=== PATIENT | male | born 1960 | race Caucasian/White ===

== ENCOUNTER 2017-11-17 08:32 | Day surgery (SDC) | payer BC ==
[2017-11-04 08:40] VITALS: BP 161/93
[~2017-11-17] VITALS: Ht 180.3 cm; Wt 100.0 kg
[~2017-11-17 08:32] MED LIST: ACETAMINOPHEN PO; BUPIVACAINE/PF 0.5% ONE; CALCIUM + D PO; EPINEPHRINE 1 MG/ML, 1ML ONE; LIDOCAINE GEL 2%, 5ML ONE; LIDOCAINE/PF 0.5% ,50ML ONE; MULT-124 PO; VITAMIN B12 PO
[2017-11-17] MEDS ORDERED: LACTATED RINGERS 1,000 ML IV SCH (09:02)
[2017-11-17] MEDS ORDERED: MIDAZOLAM 1 MG/ML, 2ML ONE (09:06)
[2017-11-17] MEDS ORDERED: FENTANYL PF 100 MCG/2ML ONE ×2 (09:06→11:00)
[2017-11-17] MEDS ORDERED: ACETAMINOPHEN 500 MG TABLET ONE (09:07)
[2017-11-17] MEDS ORDERED: GABAPENTIN 300 MG CAPSULE ONE (09:07)
[2017-11-17] MEDS ORDERED: ONDANSETRON ODT 8 MG ONE (09:07)
[2017-11-17] MEDS ORDERED: GLYCOPYRROLATE 0.2MG/1ML, 5ML ONE (09:08)
[2017-11-17] MEDS ORDERED: SUCCINYLCHOLINE 20 MG/ML, 10ML ONE (09:08)
[2017-11-17] MEDS ORDERED: NEOSTIGMINE 1 MG/ML, 10ML ONE (09:08)
[2017-11-17] MEDS ORDERED: PROPOFOL 10 MG/ML, 20ML ONE (09:08)
[2017-11-17] MEDS ORDERED: CEFAZOLIN 1,000 MG ONE (09:08)
[2017-11-17] MEDS ORDERED: DEXAMETHASONE 4 MG/ML, 1ML ONE (09:08)
[2017-11-17] MEDS ORDERED: ONDANSETRON 2MG/ML, 2ML ONE (09:08)
[2017-11-17] MEDS ORDERED: BUPIVACAINE/PF 0.5% ONE (09:08)
[2017-11-17] MEDS ORDERED: ACETAMINOPHEN 500 MG TABLET PO ONE (09:30)
[2017-11-17] MEDS ORDERED: GABAPENTIN 300 MG CAPSULE PO ONE (09:30)
[2017-11-17] MEDS ORDERED: ONDANSETRON ODT 8 MG PO ONE (09:30)
[2017-11-17] MEDS ORDERED: ROCURONIUM 10 MG/ML,10ML ONE (09:32)
[2017-11-17] MEDS ORDERED: KETOROLAC 30 MG/1 ML ONE (09:59)
[2017-11-17] MEDS ORDERED: PROMETHAZINE 12.5 MG SUPP PR PRN (10:00)
[2017-11-17] MEDS ORDERED: ALBUTEROL/IPRATROPIUM 2.5MG/0.5MG, 3 ML NPPB PRN (10:00)
[2017-11-17] MEDS ORDERED: MEPERIDINE/PF 25MG/0.5ML IVPush PRN (10:00)
[2017-11-17] MEDS ORDERED: hydrALAzine 20 MG/ML, 1ML IV PRN (10:00)
[2017-11-17] MEDS ORDERED: OXYcodone 5 MG/5 ML ORAL.SOL UDC PO PRN (10:00)
[2017-11-17] MEDS ORDERED: ONDANSETRON 2MG/ML, 2ML IVPush PRN (10:00)
[2017-11-17] MEDS ORDERED: PROMETHAZINE 25 MG/ML, 1ML IV PRN (10:00)
[2017-11-17] MEDS ORDERED: LORazepam 2 MG/ML, 1ML IVPush PRN (10:00)
[2017-11-17] MEDS ORDERED: MIDAZOLAM 1 MG/ML, 2ML IV PRN (10:00)
[2017-11-17] MEDS ORDERED: METOCLOPRAMIDE 5 MG/ML, 2ML IV PRN (10:00)
[2017-11-17] MEDS ORDERED: ALBUTEROL SULFATE 2.5 MG/3 ML NPPB PRN (10:00)
[2017-11-17] MEDS ORDERED: LABETALOL 5MG/ML, 20ML IV PRN (10:00)
[2017-11-17] MEDS ORDERED: OXYcodone 5 MG/5 ML ORAL.SOL UDC ONE (11:01)
[2017-11-17] MEDS: FENTANYL PF 100 MCG/2ML IV PRN ×2 (11:05→11:14)
[2017-11-17] MEDS ORDERED: MORPHINE SULFATE 4 MG/ML, 1ML ONE (11:30)
[2017-11-17] MEDS: morphine SULFATE 10 MG/ML, 1ML IV PRN ×2 (11:35→12:20)
== END 2017-11-17 13:05 ==
LOC: OUT 08:32
PROVIDERS: ATTEND Orthopaedic Surgery
DX: M75.41 Impingement syndrome of right shoulder (principal); M19.011 Primary osteoarthritis, right shoulder; M24.111 Other articular cartilage disorders, right shoulder; M65.811 Other synovitis and tenosynovitis, right shoulder; Z88.0 Allergy status to penicillin
CPT/HCPCS: 29823; 29824; 29826; 64415; J0171; J0330; J0690; J1100; J1885; J2001; J2250; J2270; J2405; J2704; J2710; J3010; J3490; J7120; Q0162